=== PATIENT | female | born 1980 | race Caucasian/White ===

== ENCOUNTER 2024-08-28 13:40 | Emergency (ER) | payer OTHER ==
[~2024-08-28] VITALS: Ht 157.5 cm; Wt 160.0 kg
[2024-08-28 14:26] LABS: VENOUS HCO3 22.4 MMOL/L (23.0-27.0); VENOUS O2 SATURATION 96.3 % (60.0-80.0); VENOUS PARTIAL PRESSURE CO2 37.3 mmHg (38.0-50.0); VENOUS PARTIAL PRESSURE O2 87.6 mmHg (30.0-50.0); VENOUS PH 7.397 UNITS (7.330-7.430); VENOUS STANDARD HCO3 22.8 MMOL/L; VENOUS TOTAL CO2 23.6 MMOL/L (24.0-28.0)
[2024-08-28] MEDS ORDERED: ISOVUE-370 76% 100ML VIAL As Ordered ONE (14:30)
[2024-08-28 14:33] LABS: BASO % 0.4 % (0.0-1.0); EOS # 0.1 10^3/uL (0.0-0.5); EOS % 1.2 % (0.0-3.0); HEMATOCRIT 37.1 % (36.0-47.0); HEMOGLOBIN 12.6 g/dl (12.0-15.5); LYMPH # 1.4 10^3/uL (1.5-5.0); LYMPH % 15.2 % (24.0-44.0); MEAN CORPUSCULAR HEMOGLOBIN 29.5 pg (27.0-33.0); MEAN CORPUSCULAR VOLUME 86.9 fl (80.0-96.0); MONO # 0.4 10^3/uL (0.0-0.8); MONO % 4.5 % (2.0-8.0); NEUTROPHILS # 7.1 10^3/uL (1.5-8.5); NEUTROPHILS % 78.6 % (36.0-66.0); PLATELET COUNT, AUTOMATED 237 10^3/uL (150-450); RED BLOOD COUNT 4.27 10^6/uL (4.00-5.40); WHITE BLOOD COUNT 9.1 10^3/uL (4.0-10.0)
[2024-08-28 14:56] LABS: CK-MB VALUE MASS < 1.0 NG/ML (<3.6)
[2024-08-28 14:58] LABS: ALBUMIN 3.4 G/DL (3.2-5.2); ALKALINE PHOSPHATASE 69 U/L (46-116); ALT/SGPT < 9 U/L (7.0-40); AST/SGOT < 8 U/L (<34); BILIRUBIN,DIRECT < 0.1 MG/DL (<0.4); BILIRUBIN,TOTAL < 0.2 MG/DL (0.3-1.2); BLOOD UREA NITROGEN 11 MG/DL (9-23); CALCIUM LEVEL 8.8 MG/DL (8.5-10.1); CARBON DIOXIDE LEVEL 26 MMOL/L (20-31); CHLORIDE LEVEL 109 MMOL/L (98-107); CREATININE FOR GFR 0.74 MG/DL (0.55-1.30); GLOMERULAR FILTRATION RATE > 60.0 (>58); GLUCOSE, FASTING 158 MG/DL (60-100); POTASSIUM SERUM 3.2 MMOL/L (3.5-5.1); SODIUM LEVEL 140 MMOL/L (136-145); TOTAL PROTEIN 6.1 G/DL (5.7-8.2)
[2024-08-28 14:59] LABS: CPK CREATINE PHOSPHOKINASE 165 U/L (34-145); THYROID STIMULATING HORMONE 1.547 uIU/ML (0.55-4.78); THYROXINE (T4) 10.7 UG/DL (4.5-10.9)
[2024-08-28 15:05] VITALS: TEMP 97.1
[2024-08-28 15:14] LABS: RSV AMPLIFICATION NEGATIVE (NEGATIVE)
[2024-08-28 15:57] LABS: CK-MB VALUE MASS < 1.0 NG/ML (<3.6)
[2024-08-28 16:02] LABS: CPK CREATINE PHOSPHOKINASE 172 U/L (34-145); MB/CK RELATIVE INDEX 0.58 (< OR =4)
[2024-08-28] MEDS: POTASSIUM CHLORIDE 10MEQ SR TABLET PO ONE (16:20)
[2024-08-28] MEDS: ONDANSETRON 4MG 2ML VIAL IV ONE (16:21)
[2024-08-28] MEDS ORDERED: SUCR1TAB56 (16:25)
[2024-08-28] MEDS ORDERED: LEVO88TA3 (16:25)
[2024-08-28] MEDS ORDERED: ELIQ5TAB (16:25)
[2024-08-28] MEDS ORDERED: CLON0.5T2 (16:25)
[2024-08-28] MEDS ORDERED: ELIQ5TAB PO (16:39)
[2024-08-28] MEDS ORDERED: LEVO88CA PO (16:40)
[2024-08-28] MEDS ORDERED: CLON0.5T17 PO (16:41)
[2024-08-28] MEDS ORDERED: SUCR1TA PO (16:41)
[2024-08-28 17:45] VITALS: BP 126/72; O2SAT 96
== END 2024-08-28 17:54 | disposition home or self-care (01) ==
LOC: M ED 13:40 → EDBD 13:40 → M ED 17:54
DX: R07.9 Chest pain, unspecified (principal); R10.9 Unspecified abdominal pain; Z86.711 Personal history of pulmonary embolism; Z86.718 Personal history of other venous thrombosis and embolism; F17.200 Nicotine dependence, unspecified, uncomplicated
CPT/HCPCS: 71045; 71275; 74177; 80047; 80048; 80076; 82550; 82553; 82803; 83880; 84436; 84443; 84484; 85025; 87631; 93005; 93041; 94760; 96374; 99285; J2405; Q9967

== ENCOUNTER 2024-09-06 06:27 | Emergency (ER) | payer OTHER ==
[~2024-09-06] VITALS: Ht 157.5 cm; Wt 72.7 kg
[~2024-09-06 06:27] MED LIST: CLON0.5T17 PO; CLON0.5T2; ELIQ5TAB; ELIQ5TAB PO; LEVO88CA PO; LEVO88TA3; SUCR1TA PO; SUCR1TAB56
[2024-09-06 07:18] LABS: BASO # 0.1 10^3/uL (0.0-0.2); BASO % 0.8 % (0.0-1.0); EOS # 0.5 10^3/uL (0.0-0.5); EOS % 7.5 % (0.0-3.0); HEMATOCRIT 38.1 % (36.0-47.0); HEMOGLOBIN 12.4 g/dl (12.0-15.5); LYMPH # 2.2 10^3/uL (1.5-5.0); LYMPH % 35.4 % (24.0-44.0); MEAN CORPUSCULAR HEMOGLOBIN 28.8 pg (27.0-33.0); MEAN CORPUSCULAR HGB CONC 32.5 g/dl (32.0-36.5); MEAN CORPUSCULAR VOLUME 88.6 fl (80.0-96.0); MONO # 0.4 10^3/uL (0.0-0.8); MONO % 6.4 % (2.0-8.0); NEUTROPHILS # 3.1 10^3/uL (1.5-8.5); NEUTROPHILS % 49.6 % (36.0-66.0); PLATELET COUNT, AUTOMATED 261 10^3/uL (150-450); WHITE BLOOD COUNT 6.3 10^3/uL (4.0-10.0)
[2024-09-06 07:52] LABS: ALBUMIN 3.5 G/DL (3.2-5.2); ALKALINE PHOSPHATASE 71 U/L (46-116); ALT/SGPT < 9 U/L (7.0-40); AST/SGOT < 8 U/L (<34); BILIRUBIN,DIRECT < 0.1 MG/DL (<0.4); BILIRUBIN,TOTAL < 0.2 MG/DL (0.3-1.2); BLOOD UREA NITROGEN 10 MG/DL (9-23); CALCIUM LEVEL 8.9 MG/DL (8.5-10.1); CARBON DIOXIDE LEVEL 26 MMOL/L (20-31); CHLORIDE LEVEL 110 MMOL/L (98-107); CK-MB VALUE MASS < 1.0 NG/ML (<3.6); CPK CREATINE PHOSPHOKINASE 48 U/L (34-145); CREATININE FOR GFR 0.71 MG/DL (0.55-1.30); GLOMERULAR FILTRATION RATE > 60.0 (>58); GLUCOSE, FASTING 117 MG/DL (60-100); MB/CK RELATIVE INDEX 2.08 (< OR =4); POTASSIUM SERUM 3.7 MMOL/L (3.5-5.1); SODIUM LEVEL 140 MMOL/L (136-145); TOTAL PROTEIN 6.6 G/DL (5.7-8.2)
[2024-09-06 08:19] LABS: HCG, SERUM QUALITATIVE NEGATIVE (NEGATIVE)
[2024-09-06 08:54] LABS: CK-MB VALUE MASS < 1.0 NG/ML (<3.6)
[2024-09-06] MEDS ORDERED: ISOVUE-370 76% 100ML VIAL As Ordered ONE (08:55)
[2024-09-06 08:56] LABS: CPK CREATINE PHOSPHOKINASE 54 U/L (34-145); MB/CK RELATIVE INDEX 1.85 (< OR =4)
[2024-09-06 10:00] VITALS: BP 123/84; TEMP 98.3; O2SAT 93
== END 2024-09-06 10:04 | disposition home or self-care (01) ==
LOC: M ED 06:27
DX: R07.89 Other chest pain (principal); K21.9 Gastro-esophageal reflux disease without esophagitis; E03.9 Hypothyroidism, unspecified; D68.2 Hereditary deficiency of other clotting factors; Z86.711 Personal history of pulmonary embolism; Z86.718 Personal history of other venous thrombosis and embolism; K59.00 Constipation, unspecified; Z79.01 Long term (current) use of anticoagulants; Z79.899 Other long term (current) drug therapy
CPT/HCPCS: 71046; 71275; 74177; 80048; 80076; 82550; 82553; 84484; 84703; 85025; 93005; 93041; 94760; 99285; Q9967

== ENCOUNTER → 2024-10-06 | Outpatient (CLI) | payer OTHER ==
[2024-10-06 14:15] LABS: THYROID STIMULATING HORMONE 3.901 uIU/ML (0.55-4.78)
[2024-10-06 14:16] LABS: TOTAL 25(OH) VITAMIN D 26.2 NG/ML (20.0-100.0)
[2024-10-06 16:32] LABS: HIV 1&2 SCREEN NEGATIVE (NEGATIVE)
[2024-10-06 17:46] LABS: HEPATITIS C VIRUS ABY INDEX < 0.02 INDEX (<0.8)
== END ==
LOC: M LAB 12:54
PROVIDERS: ATTEND Physician Assistant
DX: E03.9 Hypothyroidism, unspecified (principal); Z11.3 Encounter for screening for infections with a predominantly sexual mode of transmission; E55.9 Vitamin D deficiency, unspecified

== ENCOUNTER → 2025-01-18 | Outpatient (REF) | payer OTHER ==
[2025-01-20 15:07] LABS: HPV APTIMA Not Detected (Not Detected)
== END ==
LOC: M LAB REF 13:18
PROVIDERS: ATTEND Physician Assistant
DX: Z12.4 Encounter for screening for malignant neoplasm of cervix (principal)
CPT/HCPCS: 87624; G0123

== ENCOUNTER → 2025-01-25 | Outpatient (CLI) | payer OTHER | LOC: M WHC 08:15 | PROVIDERS: ATTEND Physician Assistant | DX: R92.8 Other abnormal and inconclusive findings on diagnostic imaging of breast (principal); N63.21 Unspecified lump in the left breast, upper outer quadrant | CPT/HCPCS: 76642; 77065; G0279 ==

== ENCOUNTER → 2025-01-28 | Outpatient (REF) | payer OTHER | LOC: M LAB REF 14:57 | DX: R19.7 Diarrhea, unspecified (principal); Z83.710 Family history of adenomatous and serrated polyps; K21.9 Gastro-esophageal reflux disease without esophagitis; R10.32 Left lower quadrant pain ==

== ENCOUNTER → 2025-03-24 | Outpatient (CLI) | payer OTHER ==
[~2025-03-24] MED LIST changes: -LEVO88CA PO; +LEVO88CA2 PO
[2025-03-24 11:05] VITALS: TEMP 98.8
[2025-03-24 11:50] VITALS: BP 130/82; O2SAT 99
== END ==
LOC: M WHCPRO 10:31
PROVIDERS: ATTEND Physician Assistant
DX: R92.8 Other abnormal and inconclusive findings on diagnostic imaging of breast (principal); N63.21 Unspecified lump in the left breast, upper outer quadrant

== ENCOUNTER 2025-04-04 15:35 | Emergency (ER) | payer OTHER ==
[~2025-04-04] VITALS: Ht 157.5 cm; Wt 83.0 kg
[2025-04-04] MEDS ORDERED: LOSA50TA28 (15:47)
[2025-04-04] MEDS ORDERED: OMEP40CA5 (15:47)
[2025-04-04 20:37] VITALS: BP 156/97; TEMP 96.4; O2SAT 100
== END 2025-04-04 21:56 | disposition home or self-care (01) ==
LOC: M ED 15:35
DX: M67.824 Other specified disorders of tendon, left elbow (principal); K21.9 Gastro-esophageal reflux disease without esophagitis; Z86.711 Personal history of pulmonary embolism; Z86.718 Personal history of other venous thrombosis and embolism; G62.9 Polyneuropathy, unspecified

== ENCOUNTER 2025-10-11 17:45 | Emergency (ER) | payer OTHER ==
[~2025-10-11] VITALS: Ht 157.5 cm; Wt 73.2 kg
[~2025-10-11 17:45] MED LIST changes: +LOSA50TA28; +OMEP40CA5
[2025-10-11] MEDS ORDERED: AMOX875T2 PO (19:38)
[2025-10-11 19:45] VITALS: BP 137/97; TEMP 97.5; O2SAT 98
[2025-10-11] MEDS: dexAMETHasone 4 MG/ML 1 ML VIAL PO ONE (19:47)
[2025-10-11] MEDS: AUGMENTIN 875 MG TAB PO ONE (19:47)
== END 2025-10-11 19:49 | disposition home or self-care (01) ==
LOC: M ED 17:45
DX: K04.7 Periapical abscess without sinus (principal); I10 Essential (primary) hypertension; E03.9 Hypothyroidism, unspecified; D68.51 Activated protein C resistance; Z79.899 Other long term (current) drug therapy
CPT/HCPCS: 99283; J1100

== ENCOUNTER → 2025-11-02 | Outpatient (REF) | payer OTHER ==
[~2025-11-02] MED LIST changes: +AMOX875T2 PO
[2025-11-02 15:38] LABS: APPEARANCE, URINE CLOUDY (CLEAR); BACTERIA, URINE AUTO 1+ (NEGATIVE); BILIRUBIN, URINE AUTO NEGATIVE (NEGATIVE); BLOOD, URINE BLOOD NEGATIVE (NEGATIVE); CALCIUM OXALATE CRYSTALS LARGE; GLUCOSE, URINE (UA) AUTO NEGATIVE (NEGATIVE); KETONE, URINE AUTO NEGATIVE (NEGATIVE); LEUKOCYTE ESTERASE, URINE AUTO 1+ (NEGATIVE); MUCUS, URINE SMALL (NEGATIVE); NITRITE, URINE AUTO NEGATIVE (NEGATIVE); PROTEIN, URINE AUTO NEGATIVE (NEGATIVE); RBC, URINE AUTO 11 /HPF (0-3); SPECIFIC GRAVITY URINE AUTO 1.017 (1.002-1.035); SQUAMOUS EPITHELIAL CELL UR AU 5 /HPF (0-6); TRANSITIONAL EPITHELIAL AUTO <1 /HPF; UROBILINOGEN, URINE AUTO 0.2 mg/dL (0.0-2.0); WBC, URINE AUTO 7 /HPF (0-3)
[2025-11-02 15:45] LABS: ALT/SGPT 23 U/L (7.0-40); AST/SGOT 24 U/L (<34); BASO # 0.1 10^3/uL (0.0-0.2); BASO % 0.8 % (0.0-1.0); CALCIUM LEVEL 10.0 MG/DL (8.5-10.1); CARBON DIOXIDE LEVEL 28 MMOL/L (20-31); CHLORIDE LEVEL 100 MMOL/L (98-107); CHOLESTEROL LEVEL 183 MG/DL (<200); CHOLESTEROL RISK RATIO 2.68 (<5); CREATININE FOR GFR 0.79 MG/DL (0.55-1.30); EOS # 0.7 10^3/uL (0.0-0.5); EOS % 9.2 % (0.0-3.0); GLOMERULAR FILTRATION RATE > 90.0 (>58); LDL CHOLESTEROL 99.2 MG/DL (<100); LYMPH # 2.3 10^3/uL (1.5-5.0); LYMPH % 31.2 % (24.0-44.0); MAGNESIUM LEVEL 2.4 MG/DL (1.8-2.4); MONO # 0.5 10^3/uL (0.0-0.8); MONO % 7.1 % (2.0-8.0); NEUTROPHILS # 3.8 10^3/uL (1.5-8.5); NEUTROPHILS % 51.6 % (36.0-66.0); NON-HDL-C 114.8 MG/DL; PLATELET COUNT, AUTOMATED 298 10^3/uL (150-450); POTASSIUM SERUM 4.1 MMOL/L (3.5-5.1); SODIUM LEVEL 139 MMOL/L (136-145); TRIGLYCERIDES LEVEL 78 MG/DL (<150)
[2025-11-02 15:47] LABS: CREATININE, URINE 195.2 MG/DL; MALB URINE SIEMENS 7.0 MG/L; MAU/CREAT RATIO 3.5 MCG/MG (0.0-30.0)
[2025-11-02 16:00] LABS: ESTIMATED AVERAGE GLUCOSE 105.0 MG/DL (60-110)
== END ==
LOC: M LAB REF 14:43
PROVIDERS: ATTEND Physician Assistant
DX: I10 Essential (primary) hypertension (principal)

== ENCOUNTER → 2025-11-14 | Outpatient (REF) | payer OTHER | LOC: M LAB REF 14:33 | PROVIDERS: ATTEND Physician Assistant | DX: R35.0 Frequency of micturition (principal) ==